=== PATIENT | male | born 2000 | race Two or more races ===

== ENCOUNTER 2025-04-04 17:30 | Emergency (ER) | payer OTHER ==
[~2025-04-04] VITALS: Ht 172.7 cm; Wt 74.8 kg
[2025-04-04 17:46] VITALS: BP 144/83; TEMP 98.4; O2SAT 99
== END 2025-04-04 19:13 | disposition home or self-care (01) ==
LOC: ER 17:52
DX: R00.1 Bradycardia, unspecified (principal)